=== PATIENT | male | born 1965 | race Caucasian/White ===

== ENCOUNTER 2017-06-04 20:42 | Emergency (ER) | payer OTHER ==
[~2017-06-04] VITALS: Ht 182.9 cm; Wt 152.7 kg
[2017-06-04 20:55] VITALS: TEMP 36.5; Ht 182.9 cm; Wt 152.7 kg
--- NOTE | 2017-06-04 21:36 | EMERGENCY ROOM VISIT NOTE ---
History Report prepared by Jie: Peyman Horton Under the Supervision of: Dr. Ceasar Horvath M.D. First contact with patient: 21:24 Chief Complaint: NECK PAIN Stated Complaint: FALL/ NECK, HEAD PAIN/ SANDERSON History of Present Illness The patient is a 51 year old male who presents to the Emergency Room with complaints of constant head pain beginning this morning. The patient states that he fell and hit his head this morning. He reports that he is also experiencing neck pain. The patient notes that he fell because he "blacked out" . He denies edema to his legs, chest pain, and abdominal pain. Nursing staff states the patient has a history of dementia, MR, and schizophrenia. They report the patient fell while on the phone. Source of History: patient, nursing staff Onset: this morning Position: head Timing: constant Associated Symptoms: + LOC, + neck pain, No chest pain, No abdominal pain Note: Denies: edema to his legs Review of Systems See HPI for pertinent positives & negatives. A total of 10 systems reviewed and were otherwise negative. Past Medical & Surgical Medical Problems: (1) Dementia (2) Mental retardation (3) Schizophrenia Family History Patient reports no known family medical history. Social History Smoking Status: Never Smoker Housing Status: other (the [facility]) Current/Historical Medications Scheduled Amlodipine (Norvasc), 5 MG PO DAILY Aspirin (Aspirin Chewable), 81 MG PO DAILY Cholecalciferol (Vitamin D3), 2,000 INTER.UNIT PO DAILY Divalproex Sodium (Divalproex Sodium ER), 250 MG PO HS Divalproex Sodium (Divalproex Sodium ER), 2,000 MG PO HS Donepezil HCl (Aricept), 10 MG PO HS Famotidine (Pepcid), 20 MG PO BID Ferrous Sulfate (Kp Ferrous Sulfate), 325 MG PO DAILY Lactulose (Chronulac), 5 ML PO DAILY Lorazepam (Ativan), 1 MG PO BID Metoprolol Succinate (Toprol Xl), 100 MG PO DAILY Perphenazine (Trilafon), 16 MG PO TID Prochlorperazine Maleate (Compazine), 10 MG PO HS Sertraline (Zoloft), 50 MG PO DAILY Tamsulosin HCl (Tamsulosin HCl), 0.4 MG PO DAILY Topiramate (Topamax), 100 MG PO HS Topiramate (Topamax ), 50 MG PO QAM Allergies Coded Allergies: Banana (Verified Allergy, Intermediate, unknown, 06/04/17) Ibuprofen (Verified Allergy, Intermediate, unknown, 06/04/17) NSAIDs (Verified Allergy, Intermediate, unknown, 06/04/17) Peanut (Verified Allergy, Intermediate, unknown, 06/04/17) Cat Dander (Unverified Allergy, Unknown, UNKNOWN, 06/04/17) Hall (Unverified Allergy, Unknown, UNKNOWN, 06/04/17) Cinnamon (Unverified Allergy, Unknown, UNKNOWN, 06/04/17) Pear (Unverified Allergy, Unknown, UNKNOWN, 06/04/17) Penicillins (Verified Allergy, Unknown, unknown, 06/04/17) Physical Exam Vital Signs Date Time Temp Pulse Resp B/P (MAP) Pulse Ox O2 Delivery O2 Flow Rate FiO2 06/04/17 23:00 65 20 122/99 95 06/04/17 22:35 65 20 122/99 95 Room Air 06/04/17 20:55 36.5 69 20 129/77 96 Room Air Physical Exam GENERAL: Patient is well appearing and in no acute distress. Smiling and laughing happily. HEENT: No acute trauma, normocephalic atraumatic, mucous membranes moist, no nasal congestion, no scleral icterus. Tenderness upon palpation anywhere on the head. NECK: No stridor, no adenopathy, no meningismus, trachea is midline. Tenderness upon palpation anywhere on the posterior neck. LUNGS: No dyspnea. Clear to auscultation and equal bilaterally. No wheeze, no rhonchi. HEART: Regular rate and rhythm. No murmurs, rubs, gallops appreciated. ABDOMEN: Soft, nontender, bowel sounds positive, no masses appreciated, no peritonitis. BACK: No midline tenderness, no CVA tenderness EXTREMITIES: Normal motion all extremities, no cyanosis, no edema. NEUROLOGIC: Alert and oriented, no acute motor or sensory deficits, no focal weakness, cranial nerves grossly intact. SKIN: No rash, no jaundice, no diaphoresis. Medical Decision & Procedures ER Provider Diagnostic Interpretation: Radiology results and stated below per my review and radiologist interpretation: CHEST ONE VIEW PORTABLE CLINICAL HISTORY: syncope mental status change COMPARISON STUDY: No previous studies for comparison. FINDINGS: The bones soft tissues and hemidiaphragms are normal. The cardiomediastinal silhouette is normal. The lungs are clear. The pulmonary vasculature is normal. IMPRESSION: Negative chest. The above report was generated using voice recognition software. It may contain grammatical, syntax or spelling errors. Electronically signed by: Thomas Lam M.D. 06/04/2017 10:05 PM Dictated Date/Time: 06/04/2017 10:04 PM HEAD WITHOUT CONTRAST (CT) CT DOSE: HISTORY: Trauma syncope, head injury TECHNIQUE: Multiaxial CT images of the head were performed without the use of intravenous contrast. A dose lowering technique was utilized adhering to the principles of ALARA. Comparison: None. Findings: The paranasal sinuses and mastoid air cells are clear. The calvarium and skull base are intact. The ventricles and sulci are within normal limits. There is no mass, hematoma, midline shift, or acute infarct. Impression: No acute intracranial abnormality. The above report was generated using voice recognition software. It may contain grammatical, syntax or spelling errors. Electronically signed by: Thomas Lam M.D. 06/04/2017 10:19 PM Dictated Date/Time: 06/04/2017 10:18 PM CERVICAL SPINE W/O CT DOSE: 1327.68 mGy.cm HISTORY: Trauma syncope, neck pain TECHNIQUE: Multiaxial CT images of the cervical spine were performed and reformatted in the sagittal and coronal plane without the use of contrast. A dose lowering technique was utilized adhering to the principles of ALARA. COMPARISON: None. FINDINGS: No fractures. No subluxation. Prevertebral soft tissues and the C1-C2 interval are intact. No pneumothorax. IMPRESSION: No fractures within the cervical spine. Mild degenerative change The above report was generated using voice recognition software. It may contain grammatical, syntax or spelling errors. Electronically signed by: Thomas Lam M.D. 06/04/2017 10:20 PM Dictated Date/Time: 06/04/2017 10:19 PM Laboratory Results 06/04/17 21:48 Red Blood Count 4.29, Mean Corpuscular Volume 88.6, Mean Corpuscular Hemoglobin 29.8, Mean Corpuscular Hemoglobin Concent 33.7, Mean Platelet Volume 10.2, Neutrophils (%) (Auto) 61.2, Lymphocytes (%) (Auto) 25.6, Monocytes (%) (Auto) 11.4, Eosinophils (%) (Auto) 0.8, Basophils (%) (Auto) 0.5, Neutrophils # (Auto ) 5.27, Lymphocytes # (Auto) 2.20, Monocytes # (Auto) 0.98, Eosinophils # (Auto ) 0.07, Basophils # (Auto) 0.04 06/04/17 21:48 Test 06/04/17 21:48 White Blood Count 8.60 K/uL (4.8-10.8) Red Blood Count 4.29 M/uL (4.7-6.1) Hemoglobin 12.8 g/dL (14.0-18.0) Hematocrit 38.0 % (42-52) Mean Corpuscular Volume 88.6 fL (80-100) Mean Corpuscular Hemoglobin 29.8 pg (25-34) Mean Corpuscular Hemoglobin Concent 33.7 g/dl (32-36) Platelet Count 254 K/uL (130-400) Mean Platelet Volume 10.2 fL (7.4-10.4) Neutrophils (%) (Auto) 61.2 % Lymphocytes (%) (Auto) 25.6 % Monocytes (%) (Auto) 11.4 % Eosinophils (%) (Auto) 0.8 % Basophils (%) (Auto) 0.5 % Neutrophils # (Auto) 5.27 K/uL (1.4-6.5) Lymphocytes # (Auto) 2.20 K/uL (1.2-3.4) Monocytes # (Auto) 0.98 K/uL (0.11-0.59) Eosinophils # (Auto) 0.07 K/uL (0-0.5) Basophils # (Auto) 0.04 K/uL (0-0.2) RDW Standard Deviation 44.5 fL (36.4-46.3) RDW Coefficient of Variation 13.7 % (11.5-14.5) Immature Granulocyte % (Auto) 0.5 % Immature Granulocyte # (Auto) 0.04 K/uL (0.00-0.02) Anion Gap 8.0 mmol/L (3-11) Est Creatinine Clear Calc Drug Dose 135.6 ml/min Estimated GFR () 103.6 Estimated GFR (Non- 89.4 BUN/Creatinine Ratio 23.1 (10-20) Calcium Level 8.9 mg/dl (8.5-10.1) Troponin I < 0.015 ng/ml (0-0.045) Laboratory results as reviewed by me. ECG Indication: syncope Rate (beats per minute): 64 Rhythm: normal sinus Findings: no acute ischemic change, no ectopy ED Course 2128: The patient was evaluated in room C08. A complete history and physical exam was performed. 2231: Reevaluated the patient. He is feeling better and does not want to stay. The patient states he wants to go back to the [facility]. Discussed results and discharge instructions: he verbalized understanding and agreement. The patient is ready for discharge. Medical Decision Differential: Vaso-vagal, Intracerebral Event, Neurologic, Infectious, Volume Deficiency, Hypoglycemia, Electrolyte Abnormality, Cardiac Source, Toxicologic, amongst other pathologies entertained. 51 yr old male with syncopal episode earlier in day (many hours ago) who has been well since though apparently telling staff at the [facility] he was having neck pain. He has TTP which is vague any where on head or neck. No midline stepoff nor point TTP. EKG unremarkable. Trop negative and given so far post syncope I do not feel this is ACS. No SHOB, CP, Tachycardia nor hypoxia thus I do not feel PE. I do not feel this is liver related as he is awake, talking and in no distress. Exam is benign. Labs look good. CT Head/Cspine negative. CXR negative. Will follow up with physician tomorrow. He wishes discharge and I think this is reasonable. Impression Primary Impression: Syncope Additional Impressions: Head injury Neck pain Scribe Attestation The scribe's documentation has been prepared under my direction and personally reviewed by me in its entirety. I confirm that the note above accurately reflects all work, treatment, procedures, and medical decision making performed by me. Departure Information Dispostion Home / Self-Care Referrals No Doctor, Assigned (PCP) Forms HOME CARE DOCUMENTATION FORM, IMPORTANT VISIT INFORMATION, WORK / SCHOOL INSTRUCTIONS Patient Instructions [facility] Additional Instructions EKG, Chest Xray, CT head, CT Cervical Spine were unremarkable. Labs including Renal Profile, Blood Counts, and Troponin were negative. Given this was distant from syncopal episode it is felt he is safe for outpatient work-up and should be seen by PCP tomorrow. Problem Qualifiers
[2017-06-04] MEDS ORDERED: ATV/1 PO (22:02)
[2017-06-04] MEDS ORDERED: AMLO-110 PO (22:02)
[2017-06-04] MEDS ORDERED: CHOL1000 PO (22:02)
[2017-06-04] MEDS ORDERED: ASPCH81X PO (22:02)
[2017-06-04] MEDS ORDERED: FERR1TAB13 PO (22:02)
[2017-06-04] MEDS ORDERED: METO-217 PO (22:02)
[2017-06-04] MEDS ORDERED: FLM4 PO (22:02)
[2017-06-04] MEDS ORDERED: PROC1TAB5 PO (22:02)
[2017-06-04] MEDS ORDERED: FAMO20TA11 PO (22:02)
[2017-06-04] MEDS ORDERED: DPKSR500 PO (22:02)
[2017-06-04] MEDS ORDERED: LACT10SO17 PO (22:02)
[2017-06-04] MEDS ORDERED: SERT50TA PO (22:02)
[2017-06-04] MEDS ORDERED: DONE5TAB9 PO (22:02)
[2017-06-04] MEDS ORDERED: PERP1TAB11 PO (22:02)
[2017-06-04] MEDS ORDERED: DPKSR250 PO (22:02)
[2017-06-04 22:03] LABS: BASO % 0.5 %; BASO ABS # 0.04 K/uL (0-0.2); COMPLETE YES; EOS % 0.8 %; IG% 0.5 %; LYMPH % 25.6 %; MEAN CELL VOLUME 88.6 fL (80-100); MEAN CORPUSCULAR HEMOGLOBIN 29.8 pg (25-34); MEAN CORPUSCULAR HGB CONC 33.7 g/dl (32-36); MEAN PLATELET VOLUME 10.2 fL (7.4-10.4); MONO % 11.4 %; NEUT % 61.2 %; PLATELET COUNT 254 K/uL (130-400); RED BLOOD COUNT 4.29 M/uL (4.7-6.1)
--- NOTE | 2017-06-04 22:06 | DIAGNOSTIC IMAGING REPORT ---
CHEST ONE VIEW PORTABLE CLINICAL HISTORY: syncope mental status change COMPARISON STUDY: No previous studies for comparison. FINDINGS: The bones soft tissues and hemidiaphragms are normal. The cardiomediastinal silhouette is normal. The lungs are clear. The pulmonary vasculature is normal. IMPRESSION: Negative chest. The above report was generated using voice recognition software. It may contain grammatical, syntax or spelling errors. Electronically signed by: Thomas Lam M.D. 06/04/2017 10:05 PM Dictated Date/Time: 06/04/2017 10:04 PM
[2017-06-04] MEDS ORDERED: TOPI25TA99 PO (22:07)
[2017-06-04] MEDS ORDERED: TOPI100T20 PO (22:07)
[2017-06-04 22:14] LABS: BLOOD UREA NITROGEN 22 mg/dl (7-18); BUN/CREATININE RATIO 23.1 (10-20); CALCIUM 8.9 mg/dl (8.5-10.1); CARBON DIOXIDE 24 mmol/L (21-32); CHLORIDE 104 mmol/L (98-107); CREATININE 0.97 mg/dl (0.60-1.40); GLUCOSE 88 mg/dl (70-99); POTASSIUM 3.7 mmol/L (3.5-5.1); SODIUM 136 mmol/L (136-145)
--- NOTE | 2017-06-04 22:20 | DIAGNOSTIC IMAGING REPORT ---
HEAD WITHOUT CONTRAST (CT) CT DOSE: HISTORY: Trauma syncope, head injury TECHNIQUE: Multiaxial CT images of the head were performed without the use of intravenous contrast. A dose lowering technique was utilized adhering to the principles of ALARA. Comparison: None. Findings: The paranasal sinuses and mastoid air cells are clear. The calvarium and skull base are intact. The ventricles and sulci are within normal limits. There is no mass, hematoma, midline shift, or acute infarct. Impression: No acute intracranial abnormality. The above report was generated using voice recognition software. It may contain grammatical, syntax or spelling errors. Electronically signed by: Thomas Lam M.D. 06/04/2017 10:19 PM Dictated Date/Time: 06/04/2017 10:18 PM
--- NOTE | 2017-06-04 22:22 | DIAGNOSTIC IMAGING REPORT ---
CERVICAL SPINE W/O CT DOSE: 1327.68 mGy.cm HISTORY: Trauma syncope, neck pain TECHNIQUE: Multiaxial CT images of the cervical spine were performed and reformatted in the sagittal and coronal plane without the use of contrast. A dose lowering technique was utilized adhering to the principles of ALARA. COMPARISON: None. FINDINGS: No fractures. No subluxation. Prevertebral soft tissues and the C1-C2 interval are intact. No pneumothorax. IMPRESSION: No fractures within the cervical spine. Mild degenerative change The above report was generated using voice recognition software. It may contain grammatical, syntax or spelling errors. Electronically signed by: Thomas Lam M.D. 06/04/2017 10:20 PM Dictated Date/Time: 06/04/2017 10:19 PM
[2017-06-04 23:00] VITALS: BP 122/99; PULSE 65; O2SAT 95
== END 2017-06-04 23:01 | disposition home or self-care (01) ==
LOC: C.EDC 20:45
DX: R55 Syncope and collapse (principal); S09.90XA Unspecified injury of head, initial encounter; M54.2 Cervicalgia; F03.90 Unspecified dementia, unspecified severity, without behavioral disturbance, psychotic disturbance, mood disturbance, and anxiety; F20.9 Schizophrenia, unspecified; F79 Unspecified intellectual disabilities; Z79.82 Long term (current) use of aspirin; Z79.899 Other long term (current) drug therapy; W22.8XXA Striking against or struck by other objects, initial encounter